=== PATIENT | female | born 1940 | race Caucasian/White ===

== ENCOUNTER 2022-11-14 10:00 | Outpatient (RCR) | payer MEDICARE, BC, SELFPAY | END 2022-11-27 10:30 | disposition home or self-care (01) | LOC: PT 10:00 | PROVIDERS: Visit Provider Family Medicine | DX: R42 Dizziness and giddiness (principal); R26.89 Other abnormalities of gait and mobility | CPT/HCPCS: 97110; 97140; 97163; 97164 ==

== ENCOUNTER 2023-03-06 13:00 | Outpatient (RCR) | payer MEDICARE, BC, SELFPAY | END 2023-04-10 15:35 | disposition home or self-care (01) | LOC: PT 13:00 | PROVIDERS: Visit Provider Family Medicine | DX: M25.551 Pain in right hip (principal); M76.31 Iliotibial band syndrome, right leg | CPT/HCPCS: 97110; 97163 ==